=== PATIENT | male | born 1965 | race Caucasian/White ===

== ENCOUNTER 2021-10-09 16:33 | Observation (INO) | payer OTHER ==
[~2021-10-09] VITALS: Ht 165.1 cm; Wt 87.5 kg
[2021-10-09 16:43] VITALS: BP 153/80
--- NOTE | 2021-10-09 16:52 | NUR ---
S[facility]IN[facility] TO XRAY VIA WHEELCHAIR
--- NOTE | 2021-10-09 16:56 | NUR ---
PT RETURNED TO BED 11 FROM XRAY VIA W/C
--- NOTE | 2021-10-09 17:06 | NUR ---
56 Y/O MALE BIB SELF C/O LEFT CHEST PAIN RADIATING TO LEFT ARM SHARP 9/10, GERMAIN, COUGH, GENERALIZED WEAKNESS , DIZZINESS X 3 DAYS. DENIES ANY NVD PMH: DENIES NKA
[2021-10-09] MEDS ORDERED: ASPIRIN 325 MG TAB PO ONE (17:50)
--- NOTE | 2021-10-09 17:59 | NUR ---
LAB AT BEDSIDE COLLECTING BLOODWORK
[2021-10-09 18:25] LABS: BASOPHILS # (AUTO) 0.1 K/uL (0.00-0.22); BASOPHILS % (AUTO) 1.1 % (0.0-2.0); EOSINOPHILS # (AUTO) 0.1 K/uL (0-0.4); EOSINOPHILS % (AUTO) 2.6 % (0.0-4.0); HEMATOCRIT 43.3 % (36-52); LYMPHOCYTES % (AUTO) 17.5 % (20.5-51.1); MEAN CORPUSCULAR HEMOGLOBIN 32 pg (27-31); MEAN CORPUSCULAR HGB CONC 35 g/dL (33-37); MEAN CORPUSCULAR VOLUME 91.1 fL (80-94); MONOCYTES # (AUTO) 0.5 K/uL (0.8-1.0); MONOCYTES % (AUTO) 7.9 % (1.7-9.3); NEUTROPHILS # (AUTO) 4.1 K/uL (1.8-7.7); NEUTROPHILS % (AUTO) 70.9 % (42.2-75.2); PLATELET COUNT (AUTO) 237 K/uL (140-450); RED BLOOD CELL COUNT(AUTO) 4.75 MIL/uL (4.20-6.10); RED CELL DISTRIBUTION WIDTH 13.2 % (11.6-13.7); WHITE BLOOD COUNT (AUTO) 5.7 K/uL (4.8-10.8)
[2021-10-09 18:46] LABS: ANION GAP 13.4 (8-16); CARBON DIOXIDE 24.2 mmol/L (21-32); CHLORIDE 104 mmol/L (98-107); GFR ARICAN-AMERICAN 99 mL/min (>90); GLUCOSE 135 mg/dL (74-106); POTASSIUM 3.6 mmol/L (3.5-5.1); SODIUM SERUM 138 mmol/L (136-145); UREA NITROGEN, BLOOD 17 mg/dL (7-18)
[2021-10-09 18:55] LABS: ALBUMIN 3.6 g/dL (3.4-5.0); ASPARTATE AMINOTRANSFERASE 40 U/L (15-37); LIPASE 92 U/L (73-393); TOTAL BILIRUBIN 0.4 mg/dL (0.0-1.0)
[2021-10-09] MEDS ORDERED: NITROGLYCERIN 0.4 MG TAB SL ONE (19:10)
--- NOTE | 2021-10-09 19:28 | NUR ---
Pt report given to TRELL VASQUEZ. Transfer of care at this time.
--- NOTE | 2021-10-09 19:28 | NUR ---
PER PT, HAS C/P 5/10 AND HAS BEEN RELIEVED BUT CONSTANT PAIN IN THE CHEST. PT AAOX4. NO FLUIDS RUNNING, HAS NO IV IN PLACE. PT RESTING. AND SWABBED PATIENT FOR COVID. PT SAFETY MEASURES ARE IN PLACED, ATTACHED TO THE MONITOR, & WILL CONTINUE TO MONITOR
[2021-10-09] MEDS ORDERED: ONDANSETRON 4 MG/2 ML VIAL IVP PRN (20:00)
[2021-10-09] MEDS ORDERED: KCL 20 MEQ/WATER INJ PREMIX 200 ML IV PRN (20:00)
[2021-10-09] MEDS ORDERED: ACETAMINOPHEN 325 MG TAB PO PRN (20:00)
[2021-10-09] MEDS ORDERED: MAGNESIUM OXIDE 400 MG TAB PO PRN (20:00)
[2021-10-09] MEDS ORDERED: MAG SULF 2000 MG/WATER PREMIX 50 ML IV PRN (20:00)
[2021-10-09] MEDS ORDERED: POTASSIUM CHLORIDE 10 MEQ TABER PO PRN (20:00)
[2021-10-09] MEDS ORDERED: MORPHINE SULFATE 4 MG/ML SYR IVP PRN (20:00)
[2021-10-09] MEDS ORDERED: HYDROcodone/APAP 5/325 MG 1 TAB TAB PO PRN (20:00)
[2021-10-09] MEDS ORDERED: NITROGLYCERIN 0.4 MG TAB SL PRN ×2 (20:05→22:40)
--- NOTE | 2021-10-09 20:07 | NUR ---
JAHAIRA PILLAI [phone]
--- NOTE | 2021-10-09 20:08 | NUR ---
JAHAIRA PILLAI FAMILY VERIFY CONTACT WITH PT FIRST - REQUESTING UPDATE
--- NOTE | 2021-10-09 20:13 | NUR ---
patient ambulated to the bathroom with a steady gait
[2021-10-09] MEDS ORDERED: ATORVASTATIN 20 MG TAB PO SCH (21:00)
--- NOTE | 2021-10-09 21:05 | NUR ---
pagepatrick Jamil for medication verification
--- NOTE | 2021-10-09 21:11 | NUR ---
MD Jamil called back and verified that nitro will be Q5mins x3 for C/P.
[2021-10-10] MEDS ORDERED: SYN.05 PO (02:59)
--- NOTE | 2021-10-10 03:13 | NUR ---
shanel SMITH for pt condition
--- NOTE | 2021-10-10 03:19 | NUR ---
Sherry patient's niece called for update on patient. per pt earlier was told it was okay to speak and divulge pt information to Sherry the niece.
--- NOTE | 2021-10-10 04:09 | NUR ---
patient HR dropped to 38. awoke patient and denies any pain or being uncomfortable.
--- NOTE | 2021-10-10 04:12 | NUR ---
Patient appears to be resting comfortably in bed- low fowlers, and with eyes closed. IV site patent, no redness, or swelling noted. Vital Signs within normal limits. Respirations even and unlabored. Patient in no distress at this time. Safety measures are in place, attached to the monitor and will continue to monitor patient.
--- NOTE | 2021-10-10 04:13 | NUR ---
cherie SMITH awaiting for call back.
--- NOTE | 2021-10-10 05:49 | NUR ---
patient awake. patient ambulated to the bathroom with a steady gait
[2021-10-10 06:14] LABS: BASOPHILS # (AUTO) 0.1 K/uL (0.00-0.22); BASOPHILS % (AUTO) 1.6 % (0.0-2.0); EOSINOPHILS # (AUTO) 0.3 K/uL (0-0.4); EOSINOPHILS % (AUTO) 4.7 % (0.0-4.0); HEMATOCRIT 46.7 % (36-52); LYMPHOCYTES # (AUTO) 1.9 K/uL (2.0-11.5); LYMPHOCYTES % (AUTO) 30.4 % (20.5-51.1); MEAN CORPUSCULAR HEMOGLOBIN 32 pg (27-31); MEAN CORPUSCULAR HGB CONC 34 g/dL (33-37); MONOCYTES # (AUTO) 0.7 K/uL (0.8-1.0); MONOCYTES % (AUTO) 11.1 % (1.7-9.3); NEUTROPHILS # (AUTO) 3.3 K/uL (1.8-7.7); NEUTROPHILS % (AUTO) 52.2 % (42.2-75.2); PLATELET COUNT (AUTO) 248 K/uL (140-450); RED BLOOD CELL COUNT(AUTO) 5.07 MIL/uL (4.20-6.10); RED CELL DISTRIBUTION WIDTH 13.6 % (11.6-13.7); WHITE BLOOD COUNT (AUTO) 6.4 K/uL (4.8-10.8)
--- NOTE | 2021-10-10 06:54 | NUR ---
paged for . awaiting call back
--- NOTE | 2021-10-10 07:18 | NUR ---
Pt report given to Campos CAI. Transfer of care at this time.
--- NOTE | 2021-10-10 07:38 | NUR ---
HORACE SMITH, AWAITING CALL BACK
[2021-10-10 07:43] LABS: ANION GAP 15.8 (8-16); CARBON DIOXIDE 21.4 mmol/L (21-32); CREATININE 0.9 mg/dL (0.6-1.3); MAGNESIUM 2.2 mg/dL (1.8-2.4); POTASSIUM 4.2 mmol/L (3.5-5.1); TOTAL BILIRUBIN 0.6 mg/dL (0.0-1.0)
--- NOTE | 2021-10-10 08:56 | NUR ---
SPOKE TO DR MONIQUE REGARDING BRADICARDIA AND TROPONIN LEVELS TRENDING UP. MD ORDERED ATROPINE 0.5 MG IV FOR HR BELOW 35 BPM
[2021-10-10] MEDS ORDERED: ENOXAPARIN 40 MG/0.4 ML SYR SUBQ SCH (09:00)
[2021-10-10] MEDS ORDERED: ASPIRIN 81 MG TAB.CHEW PO SCH (09:00)
--- NOTE | 2021-10-10 10:57 | NUR ---
DR ALMONTE, CARDIO AT BEDSIDE EVALUATING PT
[2021-10-10] MEDS ORDERED: lisinopriL 10 MG TAB PO SCH (11:10)
[2021-10-10] MEDS ORDERED: LOVENOX 1MG/KG Q12H SUBQ SCH (11:10)
--- NOTE | 2021-10-10 11:59 | NUR ---
DC PLANNING: THE PATIENT PRESENTED WITH LEFT SIDED CHEST PAIN, NO PREVIOUS HISTORY OF HEART DISEASE. THE PATIENT WAS SEEN BY CARDIOLOGY, ASSESSMENT STATES UNSTABLE ANGINA/NSTEMI. ORDERS RECEIVED FOR TRANSFER TO [facility] FOR CARDIAC CATH. OLIVA SPOKE WITH HARLEY AT [facility] TO INITIATE AUTHORIZATION ([phone]), REFERRAL ALSO SENT TO [facility] ([phone]). OLIVA SPOKE WITH [facility] WHO HAVE HER BRAILLE TRANSCRIBER REVIEW FOR PATIENT ACCEPTANCE, PER DR ALMONTE PATIENT NEEDS A TELEMETRY BED. [facility] TO PROVIDE AUTH FOR [facility] ONCE THE PATIENT IS ACCEPTED. CM WILL FOLLOW. Addendum: 10/10/21 at 1407 by Aga Sutton CM DC PLANNING: PATIENT ACCEPTED TO [facility] TO TELEMETRY STATION 3, ROOM 356, NUMBER TO CALL REPORT IS [phone]. DR YOUNG IS THE ACCEPTING MD, [facility] TRANSPORT SET UP WITH CHRIS ([phone]), ETA [id number]. CHRIS AUTH FROM [facility] [id number], AUTH FOR [facility] [id number]. ABOVE ENDORSED TO MALISSA IN THE ER. CM WLL FOLLOW.
--- NOTE | 2021-10-10 14:50 | NUR ---
CALLED [facility] TO GIVE REPORT [phone], GAVE REPORT TO MICHELLE PEREZ TO LOIN PULLER PATIENT AT 1530 TO TRANSPORT TO [facility]
--- NOTE | 2021-10-10 14:54 | NUR ---
CALLED AND SPOKE TO PT JANNETTE CAMPO. MADE AWARE OF TRANSFER TO [facility].
[2021-10-10 15:05] VITALS: BP 120/60
--- NOTE | 2021-10-10 17:30 | NUR ---
Patient to be transferred to [facility]. Is being transferred due to HIGHER LEVEL CARE. Receiving facility has accepting physician and available space. ER physician has signed transfer form. Patient or responsible constitution party has agreed to transfer and signed form. Patient belongings inventoried and will be sent with patient. Copy of nursing notes, lab reports, EKG, Physicians Orders and X-rays to be sent with patient. Report called to MICHELLE CAI at receiving facility. [facility] ambulance service has been called for transfer. ETA is 20 MIN.
[2021-10-10] MEDS ORDERED: ENOXAPARIN 100 MG/ML SYR SUBQ SCH (21:00)
[2021-10-11] MEDS ORDERED: LEVOTHYROXINE 0.05 MG TAB PO SCH (06:30)
== END 2021-10-10 17:30 | disposition short-term general hospital (02) ==
LOC: MED 16:33 → MTU 20:04 → INTOOBSV 20:04
PROVIDERS: ADMIT Internal Medicine; ATTEND Internal Medicine
DX: I24.9 Acute ischemic heart disease, unspecified (principal); Z20.822 Contact with and (suspected) exposure to COVID-19; R07.89 Other chest pain; I21.4 Non-ST elevation (NSTEMI) myocardial infarction; E03.9 Hypothyroidism, unspecified; R00.1 Bradycardia, unspecified; R73.9 Hyperglycemia, unspecified; Z79.899 Other long term (current) drug therapy
CPT/HCPCS: 36415; 71046; 80053; 83690; 83735; 84484; 85025; 87426; 93005; 93307; 96372; 96374; 99285; G0378; J1650; J2270

== ENCOUNTER 2022-01-01 09:42 | Day surgery (SDC) | payer OTHER ==
[~2022-01-01] VITALS: Ht 167.6 cm; Wt 85.3 kg
[~2022-01-01 09:42] MED LIST: SYN.05 PO
[2022-01-01] MEDS ORDERED: MIDAZOLAM 5 MG/5 ML VIAL ONE ×2 (10:00→11:28)
[2022-01-01] MEDS ORDERED: fentaNYL citrate 0.05 MG/ML VIAL ONE ×2 (10:00→11:28)
[2022-01-01] MEDS ORDERED: diphenhydrAMINE 50 MG/ML VIAL ONE ×2 (10:00→11:28)
[2022-01-01] MEDS ORDERED: LIDOCAINE 2% 100 MG/5 ML UJET TP ONE (11:28)
[2022-01-01] MEDS ORDERED: MIDAZOLAM 2 MG/2 ML VIAL IVP ONE (16:00)
[2022-01-01] MEDS ORDERED: diphenhydrAMINE 50 MG/ML VIAL IVP ONE (16:00)
[2022-01-01] MEDS ORDERED: fentaNYL citrate 0.05 MG/ML VIAL IVP ONE (16:00)
== END 2022-01-01 13:20 | disposition home or self-care (01) ==
LOC: MMU 09:42 → MOR 09:42
PROVIDERS: ATTEND Internal Medicine Gastroenterology
DX: Z12.11 Encounter for screening for malignant neoplasm of colon (principal); K63.5 Polyp of colon; R10.13 Epigastric pain; K21.9 Gastro-esophageal reflux disease without esophagitis; E03.9 Hypothyroidism, unspecified; I10 Essential (primary) hypertension; E78.5 Hyperlipidemia, unspecified; Z20.822 Contact with and (suspected) exposure to COVID-19; Z79.899 Other long term (current) drug therapy
CPT/HCPCS: 43239; 45385; 87426; J1200; J2250; J3010; 88305; 88312; 88313; 88342

== ENCOUNTER 2022-03-19 13:49 | Emergency (ER) | payer OTHER ==
[~2022-03-19] VITALS: Ht 167.6 cm; Wt 84.6 kg
[2022-03-19 14:14] VITALS: BP 153/79
--- NOTE | 2022-03-19 14:21 | NUR ---
PPT AMB TO BED 4.
[2022-03-19 14:50] VITALS: BP 149/82
--- NOTE | 2022-03-19 14:52 | NUR ---
57/m C/O EPIGASTRIC PAIN AND HEADACHE ONSET 2 MONTHS AGO AFTER COLONOSCOPY. AAOX4, AMBULATORY. AAOX4, VITALS STABLE. EKG AT BEDSIDE. PMH: HYPOTHYROID, HEART PROBLEM, HTN
--- NOTE | 2022-03-19 16:05 | NUR ---
PT BACK FROM CT
[2022-03-19] MEDS ORDERED: IBUP-2213 PO (16:12)
[2022-03-19] MEDS ORDERED: ACET-8386 PO (16:12)
--- NOTE | 2022-03-19 16:18 | NUR ---
Patient discharged with v/s stable. Written and verbal after care instructions given and explained. Patient verbalized understanding. Ambulatory with steady gait. All questions addressed prior to discharge. Advised to follow up with PMD.
== END 2022-03-19 16:18 | disposition home or self-care (01) ==
LOC: MED 13:49
DX: R51.9 Headache, unspecified (principal); R07.9 Chest pain, unspecified; Z79.899 Other long term (current) drug therapy
CPT/HCPCS: 70450; 81002; 93005; 99284

== ENCOUNTER 2022-05-08 20:09 | Inpatient (IN) | payer OTHER ==
[~2022-05-08] VITALS: Ht 167.6 cm; Wt 85.7 kg
[~2022-05-08 20:09] MED LIST changes: +ACET-8386 PO; +IBUP-2213 PO
[2022-05-08 20:19] VITALS: BP 122/85
--- NOTE | 2022-05-08 20:22 | NUR ---
TO [facility] AMBULATORY
--- NOTE | 2022-05-08 22:08 | NUR ---
PT AMBULATED TO BED #4
[2022-05-08 22:31] LABS: BASOPHILS # (AUTO) 0.1 K/uL (0.00-0.22); BASOPHILS % (AUTO) 0.6 % (0.0-2.0); EOSINOPHILS # (AUTO) 0.1 K/uL (0-0.4); EOSINOPHILS % (AUTO) 0.7 % (0.0-4.0); HEMOGLOBIN 15.5 g/dL (12.0-18.0); LYMPHOCYTES % (AUTO) 11.4 % (20.5-51.1); MEAN CORPUSCULAR HEMOGLOBIN 31 pg (27-31); MEAN CORPUSCULAR HGB CONC 34 g/dL (33-37); MEAN CORPUSCULAR VOLUME 91.3 fL (80-94); MONOCYTES # (AUTO) 0.6 K/uL (0.8-1.0); MONOCYTES % (AUTO) 6.9 % (1.7-9.3); NEUTROPHILS # (AUTO) 7.1 K/uL (1.8-7.7); NEUTROPHILS % (AUTO) 80.4 % (42.2-75.2); PLATELET COUNT (AUTO) 246 K/uL (140-450); RED BLOOD CELL COUNT(AUTO) 4.93 MIL/uL (4.20-6.10); RED CELL DISTRIBUTION WIDTH 13.5 % (11.6-13.7); WHITE BLOOD COUNT (AUTO) 8.8 K/uL (4.8-10.8)
[2022-05-08 22:52] LABS: ANION GAP 10.5 (8-16); CARBON DIOXIDE 26.7 mmol/L (21-32); CREATININE 0.8 mg/dL (0.6-1.3); POTASSIUM 4.2 mmol/L (3.5-5.1)
[2022-05-08] MEDS ORDERED: ASPIRIN 325 MG TAB PO ONE (23:15)
[2022-05-08 23:55] LABS: PROTHROMBIN TIME 10.2 secs (10.8-13.4)
[2022-05-08] MEDS ORDERED: LEVO150C2 PO (23:58)
[2022-05-08] MEDS ORDERED: TAMS0.4C96 PO (23:58)
--- NOTE | 2022-05-09 00:28 | NUR ---
REPORT HAS BEEN CALLED TO TRELL DENG AT THIS TIME. NO FURTHER QUESTIONS. PT STABLE TO BE TRANSPORTED.
--- NOTE | 2022-05-09 00:35 | NUR ---
PT TRANSPORTED VIA ER. PT IS AAOX4 ANDORRAN SPEAKER. PT IS ON RA. PT HAS 20 GAUGE ON RIGHT FOREARM SALINE LOCK. PT EDUCATED SMALL ARMS REPAIRER LIGHT SYSTEM. PLAN OF CARE DISCUSSED. WILL CONTINUE TO MONITOR THE PT.
[2022-05-09 00:40] VITALS: BP 157/83
--- NOTE | 2022-05-09 00:59 | NUR ---
Patient will be admitted to care of Dr. Hunter. Admited to telemetry. Will go to room. Belongings list completed. Report to TRELL Licona.
--- NOTE | 2022-05-09 02:27 | NUR ---
PT OBSERVED. PT IS SLEEPING COMFORTABLY IN BED. PT IS NOT IN ANY ACUTE DISTRESS. WILL CONTINUE TO MONITOR THE PT.
[2022-05-09 04:00] VITALS: BP 139/76
--- NOTE | 2022-05-09 04:10 | NUR ---
VITAL SIGNS TAKEN AND STABLE. PT HR BEEN IN THE 50S THROUGH OUT SHIFT. PT HAS NO COMPLAINS AT THIS TIME. WILL CONTINUE TO MONITOR THE PT.
--- NOTE | 2022-05-09 07:22 | NUR ---
ENDORSED PT TO DAY SHIFT RN ADZ FOR CONTINUITY OF CARE. PT IS STABLE.
[2022-05-09] MEDS ORDERED: MAG SULF 2000 MG/WATER PREMIX 50 ML IV PRN (07:50)
[2022-05-09] MEDS ORDERED: ONDANSETRON 4 MG/2 ML VIAL IVP PRN (07:50)
[2022-05-09] MEDS ORDERED: ACETAMINOPHEN 325 MG TAB PO PRN (07:50)
[2022-05-09] MEDS ORDERED: MORPHINE SULFATE 2 MG/ML SYR IVP PRN (07:50)
[2022-05-09] MEDS ORDERED: POTASSIUM CHLORIDE 10 MEQ TABER PO PRN (07:50)
[2022-05-09 08:00] VITALS: BP 132/72
--- NOTE | 2022-05-09 08:00 | NUR ---
patient received resting in bed. not in any form of distress. Dr. Hunter seen and examined the patient. aware of patient still has complaints of chest pain and is bradycardic. updated patient with plan of care.
[2022-05-09] MEDS: ASPIRIN 81 MG TAB.CHEW PO SCH (08:40)
[2022-05-09] MEDS: LEVOTHYROXINE 0.05 MG TAB PO SCH (08:40)
[2022-05-09] MEDS: MORPHINE SULFATE 2 MG/ML SYR IVP PRN ×2 (08:41→22:10)
--- NOTE | 2022-05-09 10:13 | NUR ---
PATIENT HAS BEEN SCREENED AND CATEGORIZED LOW NUTRITION RISK. PATIENT WILL BE SEEN WITHIN 7 DAYS OF ADMISSION. 05/15/[address] REVIEWED BY GUANA[address]
--- NOTE | 2022-05-09 10:30 | NUR ---
received a call from lab. patient's troponin 134. Dr. Hunter made aware with no orders.
[2022-05-09 12:00] VITALS: BP 133/73
[2022-05-09] MEDS: TAMSULOSIN 0.4 MG CAP PO SCH (12:04)
--- NOTE | 2022-05-09 14:50 | NUR ---
DC PLANNING SW MET WITH PT AT BEDSIDE TO COMPLETE ASSESSMENT. PT PRIMARILY [place] SPEAKING THEREFORE CHANNELING MACHINE OPERATOR UTILIZED [id number]/ YOLIS. PT REPORTS RESIDING IN A SINGLE STORY HOME WITH HIS SISTER. PATIENT IDENTIFIED ADRIENNE MCGRAW, SISTER, AND PILY DESHPANDE, NIECE, EMERGENCY CONTACT. PATIENT DENIES HAVING AD IN PLACE AND DECLINED AD OFFERED BY SW. PATIENT REPORTS MEETING WITH PCP, DR JOSHI, NEEDED, LAST VISIT 3 DAYS AGO. SPOKE TO PT ABOUT IMPORTANCE OF FOLLOW UP CARE, PATIENT RECEPTIVE AND PROVIDED SW WITH PERMISSION TO SCHEDULE F/UP APPT. PATIENT REPORTS MEDICATION COMPLIANCE AND DENIES BARRIERS IN ACCESS TO MEDICATION. PATIENT REPORTS RECEIVING MEDICATION FROM [facility] IN [place], WHEN NEEDED. PATIENT REPORTS BEING INDEPENDENT IN ALL ACTIVITIES AND DENIES USE OF DME. PT DENIES MH/SA HX. PATIENT DENIES HX OF DIABETES, DIALYSIS TX, HH SERVICES. PATIENT REPORTS BEING AT [facility], 12 YRS AGO. PT REPORTS DC PLAN IS TO RETURN HOME WITH SISTER PROVIDING TRANSPORTATION WHEN MEDICALLY STABLE. Addendum: 05/09/22 at 1452 by Irlanda Boudreaux SS Amended: Links added.
[2022-05-09 16:00] VITALS: BP 144/72
--- NOTE | 2022-05-09 19:10 | NUR ---
RECEIVED REPORT FROM DAY SHIFT RN CAROLIN. PT IS AAOX4 SLOVAK SPEAKER. PT IS ON RA. PT HAS 20 GAUGE ON RIGHT FOREARM SALINE LOCK. PLAN OF CARE DISCUSSED. WILL CONTINUE TO MONITOR THE PT.
[2022-05-09] MEDS: ZOLPIDEM 10 MG TAB PO PRN (19:47)
--- NOTE | 2022-05-09 19:52 | NUR ---
PT WANTED SOMETHING FOR SLEEP. AMBIEN WAS GIVEN. NO OTHER COMPLAINS. WILL CONTINUE TO MONITOR THE PT.
[2022-05-09] MEDS: DOCUSATE SODIUM 100 MG GELCAP PO PRN (19:58)
[2022-05-09 20:00] VITALS: BP 145/80
[2022-05-10] VITALS: BP 137/76
--- NOTE | 2022-05-10 00:15 | NUR ---
PT IS AWAKE. PT HAS NO COMPLAINS AT THIS MOMENT. PT IS NOT IN ANY ACUTE DISTRESS. WILL CONTINUE TO OBSERVE PT.
--- NOTE | 2022-05-10 02:40 | NUR ---
PT SLEEPING COMFORTABLY IN BED. PT NOT IN ANY ACUTE DISTRESS. WILL CONTINUE TO MONITOR THE PT.
[2022-05-10 04:00] VITALS: BP 126/73
--- NOTE | 2022-05-10 07:12 | NUR ---
ENDORSED PT TO DAY SHIFT RN ADZ FOR CONTINUITY OF CARE. PT IS STABLE.
[2022-05-10 07:19] LABS: ANION GAP 9.5 (8-16); CARBON DIOXIDE 29.4 mmol/L (21-32); CREATININE 0.9 mg/dL (0.6-1.3); POTASSIUM 4.9 mmol/L (3.5-5.1)
[2022-05-10 07:25] LABS: BASOPHILS % (AUTO) 0.7 % (0.0-2.0); EOSINOPHILS # (AUTO) 0.3 K/uL (0-0.4); HEMATOCRIT 47.6 % (36-52); HEMOGLOBIN 16.2 g/dL (12.0-18.0); LYMPHOCYTES # (AUTO) 1.2 K/uL (2.0-11.5); LYMPHOCYTES % (AUTO) 17.8 % (20.5-51.1); MEAN CORPUSCULAR HEMOGLOBIN 31 pg (27-31); MEAN CORPUSCULAR HGB CONC 34 g/dL (33-37); MEAN CORPUSCULAR VOLUME 92.1 fL (80-94); MONOCYTES # (AUTO) 0.8 K/uL (0.8-1.0); NEUTROPHILS # (AUTO) 4.3 K/uL (1.8-7.7); NEUTROPHILS % (AUTO) 64.5 % (42.2-75.2); PLATELET COUNT (AUTO) 263 K/uL (140-450); RED BLOOD CELL COUNT(AUTO) 5.17 MIL/uL (4.20-6.10); RED CELL DISTRIBUTION WIDTH 13.4 % (11.6-13.7); WHITE BLOOD COUNT (AUTO) 6.6 K/uL (4.8-10.8)
[2022-05-10 08:00] VITALS: BP 126/68
--- NOTE | 2022-05-10 08:00 | NUR ---
RECEIVED PT. LAYING IN BED, ASLEEP, APPEARS COMFORTABLE. IN NO ACUTE DISTRESS.
[2022-05-10] MEDS: LEVOTHYROXINE 0.05 MG TAB PO SCH (08:30)
[2022-05-10] MEDS: PANTOPRAZOLE 40 MG TABEC PO SCH (08:30)
[2022-05-10] MEDS: ASPIRIN 81 MG TAB.CHEW PO SCH (08:30)
[2022-05-10 12:00] VITALS: BP 158/73
[2022-05-10] MEDS: LORazepam 2 MG/ML VIAL IVP PRN ×2 (12:00→23:25)
[2022-05-10] MEDS: TAMSULOSIN 0.4 MG CAP PO SCH (12:00)
--- NOTE | 2022-05-10 12:00 | NUR ---
PATIENT APPEARS ANXIOUS AT THIS TIME,DENIES ANY CHEST PAIN. MEDICATED WITH ATIVAN ORDERED. WILL CONTINUE PLAN OF CARE.
[2022-05-10 16:00] VITALS: BP 120/74
--- NOTE | 2022-05-10 17:50 | NUR ---
DR. ALMONTE HERE AND EXAMINED THE PATIENT.
--- NOTE | 2022-05-10 19:15 | NUR ---
RECEIVED REPORT FROM DAY NURSE. PATIENT IS AWAKE, ALERT AND ORIENTED, IV ACCESS SITE ON RIGHT FOREARM G 20, SALINE LOCK. PATIENT IS AMBULATORY, GAIT STEADY, ON ROOM AIR, IS CONTINENT OF B/B. CALL LIGHT WITHIN REACH.
[2022-05-10 20:00] VITALS: BP 141/83
[2022-05-10] MEDS: ZOLPIDEM 10 MG TAB PO PRN (20:12)
[2022-05-10] MEDS: DOCUSATE SODIUM 100 MG GELCAP PO PRN (20:13)
--- NOTE | 2022-05-10 20:16 | NUR ---
PATIENT WANTED MEDICATION FOR SLEEP AND CONSTIPATION, GIVEN PRN AMBIEN AND COLACE ORDERED.
[2022-05-11] VITALS: BP 127/75
--- NOTE | 2022-05-11 00:26 | NUR ---
PATIENT IS ASLEEP, HOB ELEVATED, BREATHING EVEN AND NON LABORED ROOM AIR. VITALS T 97.1, HR 58BPM, BP 127/75 MMHG, RESP 18, 02 97% ON ROOM AIR. CALL LIGHT WITHIN REACH, SAFETY PRECAUTIONS MAINTAINED. WILL CONTINUE TO MONITOR.
--- NOTE | 2022-05-11 02:45 | NUR ---
PT IS SLEEPING COMFORTABLY IN BED. PT NOT IN ANY ACUTE DISTRESS. BREATHING EVEN AND UNLABORED. CALL LIGHT WITHIN REACH. WILL CONTINUE TO MONITOR THE PT.
[2022-05-11 04:00] VITALS: BP 111/73
--- NOTE | 2022-05-11 06:09 | NUR ---
SCHEDULE SYNTHROID GIVEN. NO COMPLAINS FROM THE PT. WILL CONTINUE TO MONITOR THE PT.
[2022-05-11] MEDS ORDERED: LEVOTHYROXINE 0.05 MG TAB PO SCH (06:30)
[2022-05-11 07:12] LABS: ANION GAP 10.7 (8-16); CREATININE 0.8 mg/dL (0.6-1.3); POTASSIUM 3.7 mmol/L (3.5-5.1)
[2022-05-11 07:16] LABS: BASOPHILS # (AUTO) 0.1 K/uL (0.00-0.22); BASOPHILS % (AUTO) 0.9 % (0.0-2.0); EOSINOPHILS # (AUTO) 0.4 K/uL (0-0.4); HEMATOCRIT 46.4 % (36-52); HEMOGLOBIN 15.7 g/dL (12.0-18.0); LYMPHOCYTES # (AUTO) 1.2 K/uL (2.0-11.5); LYMPHOCYTES % (AUTO) 17.2 % (20.5-51.1); MEAN CORPUSCULAR HEMOGLOBIN 31 pg (27-31); MEAN CORPUSCULAR HGB CONC 34 g/dL (33-37); MEAN CORPUSCULAR VOLUME 92.1 fL (80-94); MONOCYTES # (AUTO) 0.8 K/uL (0.8-1.0); MONOCYTES % (AUTO) 12.2 % (1.7-9.3); NEUTROPHILS # (AUTO) 4.4 K/uL (1.8-7.7); NEUTROPHILS % (AUTO) 63.7 % (42.2-75.2); PLATELET COUNT (AUTO) 270 K/uL (140-450); RED BLOOD CELL COUNT(AUTO) 5.04 MIL/uL (4.20-6.10); RED CELL DISTRIBUTION WIDTH 13.2 % (11.6-13.7); WHITE BLOOD COUNT (AUTO) 6.9 K/uL (4.8-10.8)
--- NOTE | 2022-05-11 07:16 | NUR ---
ENDORSED PATIENT TO DAY NURSE FOR CONTINUITY OF CARE. PATIENT IS STABLE.
[2022-05-11 08:00] VITALS: BP 111/73
[2022-05-11] MEDS: PANTOPRAZOLE 40 MG TABEC PO SCH (08:49)
[2022-05-11] MEDS: ASPIRIN 81 MG TAB.CHEW PO SCH (08:49)
[2022-05-11 10:55] VITALS: BP 111/73
[2022-05-11] MEDS: TAMSULOSIN 0.4 MG CAP PO SCH (12:25)
--- NOTE | 2022-05-11 13:50 | NUR ---
PATIENT DISCHARGED HOME. INSTRUCTIONS GIVEN. STABLE UPON DISCHARGE
== END 2022-05-11 13:53 | disposition home or self-care (01) | DRG 190 ==
LOC: MED 20:09 → MTU 23:26
PROVIDERS: ADMIT Family Medicine; ATTEND Family Medicine
DX: I21.4 Non-ST elevation (NSTEMI) myocardial infarction (principal); G61.0 Guillain-Barre syndrome; E87.1 Hypo-osmolality and hyponatremia; K29.70 Gastritis, unspecified, without bleeding; N40.0 Benign prostatic hyperplasia without lower urinary tract symptoms; Z20.822 Contact with and (suspected) exposure to COVID-19; K29.50 Unspecified chronic gastritis without bleeding; E03.9 Hypothyroidism, unspecified; Z79.1 Long term (current) use of non-steroidal anti-inflammatories (NSAID); Z79.891 Long term (current) use of opiate analgesic; Z79.899 Other long term (current) drug therapy
CPT/HCPCS: 36415; 70450; 71045; 80048; 83735; 84484; 85025; 85610; 85730; 87081; 93005; 99285; J2060; J2270; Q0092